=== PATIENT | male | born 1940 ===

== ENCOUNTER 2018-04-08 11:00 | Emergency (ER) | payer MEDICARE ==
[2018-04-08 11:12] VITALS: BMI 37.5
[2018-04-08 11:42] VITALS: TEMP 98
--- NOTE | 2018-04-08 11:43 | ED PDOC ---
Arrival/HPI - General Time Seen by Provider: 04/08/18 11:29 Historian: Patient, Spouse, Family (Daughter) - History of Present Illness Narrative History of Present Illness (Text): 04/08/18 11:39 A 77 year old male, whose past medical history includes, 4 cardiac stents, is brought into the emergency department for further evaluation of near- syncopal episode over the past week. Contrary to triage note, patient denies weakness. The patient states that he felt lightheaded last week. He notes that it was for a brief period of time, but yesterday, he experienced the same symptoms stating he was concerned he would pass out. He states that this episode was longer than the episode last week. The patient's also states that the patient has not been sleeping well. The patient denies fevers, chills, headache, sore throat, cough, chest pain, shortness of breath, dyspnea on exertion, abdominal pain, nausea, vomiting, diarrhea, neck/back pain, urinary/bowel changes or any other complaint. PMD: Dr. Varma Casing Material Weigher: Dr. Santana Time/Duration: 1 week Symptom Onset: Sudden Symptom Course: Unchanged Activities at Onset: Rest, Light Context: Home Past Medical History - Provider Review Nursing Documentation Reviewed: Yes - Cardiac Hx Pacemaker: No - Neurological Hx Paralysis: No - Hematological/Oncological Hx Blood Transfusions: No - Musculoskeletal/Rheumatological Hx Musculoskeletal Disorders: No - Psychiatric Hx Emotional Abuse: No Hx Physical Abuse: No Hx Substance Use: No - Anesthesia Hx Anesthesia Reactions: No Hx Malignant Hyperthermia: No - Suicidal Assessment Feels Threatened In Home Enviroment: No Family/Social History - Physician Review Nursing Documentation Reviewed: Yes Family/Social History: No Known Family HX Hx Alcohol Use: No Hx Substance Use: No Allergies/Home Meds Allergies/Adverse Reactions: Allergies No Known Allergies Allergy (Verified 04/08/18 11:38) Home Medications: Home Meds Medication Instructions Recorded Confirmed Aspirin [Ecotrin] 81 mg PO DAILY 07/14/17 04/08/18 Lisinopril [Zestril] 10 mg PO DAILY 07/14/17 04/08/18 Simvastatin 20 mg PO DAILY 07/14/17 04/08/18 metFORMIN [glucOPHAGE] 500 mg PO DAILY 07/14/17 04/08/18 Review of Systems - Physician Review All systems were reviewed & negative as marked: Yes - Review of Systems Constitutional: absent: Fevers ENT: absent: Sore Throat Respiratory: absent: SOB, Cough Cardiovascular: absent: Chest Pain, MACK Gastrointestinal: absent: Abdominal Pain, Stool Changes, Diarrhea, Nausea, Vomiting Genitourinary Male: absent: Urinary Output Changes Musculoskeletal: absent: Back Pain, Neck Pain Neurological: Headache, Dizziness (Lightheadedness.) Physical Exam Vital Signs Reviewed: Yes Vital Signs Temp Pulse Resp BP Pulse Ox 04/08/18 11:10 97.9 F 79 18 170/85 H 96 Temperature: Afebrile Blood Pressure: Hypertensive Pulse: Regular Respiratory Rate: Normal Appearance: Positive for: Well-Appearing, Non-Toxic, Comfortable Pain Distress: None Mental Status: Positive for: Alert and Oriented X 3 - Systems Exam Head: Present: Atraumatic, Normocephalic Pupils: Present: PERRL Extroacular Muscles: Present: EOMI Conjunctiva: Present: Normal Mouth: Present: Moist Mucous Membranes Neck: Present: Normal Range of Motion Respiratory/Chest: Present: Clear to Auscultation, Good Air Exchange. No: Respiratory Distress, Accessory Muscle Use Cardiovascular: Present: Regular Rate and Rhythm, Normal S1, S2. No: Murmurs Abdomen: No: Tenderness, Distention, Peritoneal Signs Back: Present: Normal Inspection Upper Extremity: Present: Normal Inspection. No: Cyanosis, Edema Lower Extremity: Present: Normal Inspection. No: Edema Neurological: Present: GCS=15, CN II-XII Intact, Speech Normal, Normal Sensory Function, Normal Cerebellar Funct, Gait Normal, Memory Normal, Normal 2Pt Descrimination Skin: Present: Warm, Dry, Normal Color. No: Rashes Psychiatric: Present: Alert, Oriented x 3, Normal Insight, Normal Concentration Medical Decision Making ED Course and Treatment: 04/08/18 11:44 Impression: A 77 year old male presents to the emergency department for further evaluation of near- syncopal episode. Currently asymptomatic. Did not have any episodes today. Differential Diagnosis included but are not limited to: Cardiac vs Insomnia Plan: -- EKG -- Chest X-ray -- Labs -- Reassess and disposition Prior Visits: Notes and results from previous visits were reviewed. Progress Notes: 04/08/18 11:47 EKG: Ordered, reviewed, and independently interpreted the EKG. Rate : 77 BPM Rhythm : NSR Interpretation : Normal EKG Chest X-ray Dictator : Xander Christie MD Report Date : 04/08/2018 12:42:06 IMPRESSION: No infiltrate. Elevated right hemidiaphragm. No additional abnormality peer 04/08/18 14:09: Discussed admission for near syncope. 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 I explained his risk factors and advised him to return to the hospital with any concern for lightheadedness or chest pain or any concerns. He and his family agree with this plan. No symptoms throughput his ED stay. His [place] Syncope score is zero. He will be set up with prompt cardiology followup. Patient is in no acute distress. I have discussed the results and plan with the patient, who expresses understanding. Patient given the opportunity to ask question, all questions were answered and there is agreement with the plan to discharge the patient home. Patient is stable for discharge. Patient was instructed to follow up with physician/clinic in 1-2 days or return if symptoms persist/worsen or new concerning symptoms arise. 04/08/18 [id number]: Case discussed in detail with Dr. Santana regarding the care of his patient. States he will see him as outpatient on Wednesday. Patient was made aware that his follow up appt is now on Wednesday and not Wednesday. He will call to confirm his appt. 04/08/18 18:16 - Scribe Statement The provider has reviewed the documentation as recorded by the Scribe Claire Mendoza Provider Scribe Attestation: All medical record entries made by the Scribe were at my direction and personally dictated by me. I have reviewed the chart and agree that the record accurately reflects my personal performance of the history, physical exam, medical decision making, and the department course for this patient. I have also personally directed, reviewed, and agree with the discharge instructions and disposition. Disposition/Present on Arrival - Present on Arrival Any Indicators Present on Arrival: No - Disposition Have Diagnosis and Disposition been Completed?: Yes Diagnosis: Near syncope Disposition: HOME/ ROUTINE Disposition Time: 14:08 Condition: IMPROVED Discharge Instructions (ExitCare): Near Fainting Additional Instructions: RIVAS THOMPSON, thank you for letting us take care of you today. Your provider was Delbert Salgado DO and you were treated for Near Syncope. The emergency medical care you received today was directed at your acute symptoms. If you were prescribed any medication, please fill it and take as directed. It may take several days for your symptoms to resolve. Return to the Emergency Department if your symptoms worsen, do not improve, or if you have any other problems. Please contact your doctor or call one of the physicians/clinics you have been referred to that are listed on the Patient Visit Information form that is included in your discharge packet. Bring any paperwork you were given at discharge with you along with any medications you are taking to your follow up visit. Our treatment cannot replace ongoing medical care by a primary care provider outside of the emergency department. Thank you for allowing the [facility] team to be part of your care today. If you had an X-Ray or CT scan: A Radiologist will review the ED reading if any change in treatment is needed we will contact you. If you had a blood, urine, or wound culture: It will take several days for the results, if any change in treatment is needed we will contact you. If you had an STI test: It will take 48 hours for the results. Please call after 1 week if you have not heard back. Referrals: Avtar Varma APN [Primary Care Provider] - Follow up with primary Forms: WORK NOTE
[2018-04-08 12:20] LABS: BASO # 0.07 K/mm3 (0.0-2.0); BASO % 1.3 % (0.0-3.0); EOS # 0.1 (0.0-0.7); EOS % 2.4 % (1.5-5.0); GRAN # 2.99 (1.4-6.5); GRAN % 54.7 % (50.0-68.0); HEMOGLOBIN 14.8 g/dL (14.0-18.0); LYMPH # 1.2 (1.2-3.4); LYMPH % 21.6 % (22.0-35.0); MEAN CELL VOLUME 90.6 fl (80.0-105.0); MEAN CORPUSCULAR HEMOGLOBIN 30.3 pg (25.0-35.0); MEAN CORPUSCULAR HGB CONC 33.5 g/dl (31.0-37.0); MEAN PLATELET VOLUME 11.2 fl (7.0-11.0); MONO # 1.1 (0.1-0.6); RBC 4.88 10^6/uL (3.5-6.1); RED CELL DISTRIBUTION WIDTH 14.3 % (11.5-14.5); WHITE BLOOD COUNT 5.5 10^3/uL (4.5-11.0)
[2018-04-08 12:35] LABS: ALB/GLOB RATIO 1.1 (1.1-1.8); ALBUMIN 4.4 g/dL (3.0-4.8); ALT/SGPT 50 U/L (7-56); AST/SGOT 45 U/L (17-59); BLOOD UREA NITROGEN 23 mg/dL (7-21); CALCIUM 9.4 mg/dL (8.4-10.5); GFR NON-AFRICAN AMERICAN > 60
--- NOTE | 2018-04-08 12:45 | RAD ---
Date of service: 04/08/2018 HISTORY: near syncope COMPARISON: No prior. FINDINGS: LUNGS: No active pulmonary disease. PLEURA: Incidental elevation of the right hemidiaphragm, nonspecific. No pleural effusion. No pneumothorax. CARDIOVASCULAR: No aortic atherosclerotic calcification present. Normal cardiac size. No pulmonary vascular congestion. OSSEOUS STRUCTURES: No significant abnormalities. VISUALIZED UPPER ABDOMEN: Normal. OTHER FINDINGS: None. IMPRESSION: No infiltrate. Elevated right hemidiaphragm. No additional abnormality peer
[2018-04-08 12:46] LABS: TROPONIN I < 0.01 ng/mL
[2018-04-08 13:57] VITALS: BP 131/76; PULSE 67; RESP 18; O2SAT 95
--- NOTE | 2018-04-09 10:01 | CARD ---
APPROVED REPORT Date of service: 04/08/2018 EKG Measurement Heart [id number] [id number] <Conclusion> Normal sinus rhythm Q in 3 Normal ECG
== END 2018-04-08 14:32 | disposition home or self-care (01) ==
LOC: ED 11:00
DX: R55 Syncope and collapse (principal); Z95.5 Presence of coronary angioplasty implant and graft